=== PATIENT | male | born 1995 | race African-American/Black ===

== ENCOUNTER 2020-02-12 14:46 | Emergency (ER) | payer OTHER, SELFPAY ==
[2020-02-13 18:17] LABS: SARS-CoV-2 MS2 Positive; SARS-CoV-2 N Gene Negative; SARS-CoV-2 S Gene Negative; SARS-CoV-2 by NAA Not Detected (NotDetected); SARS-CoV-2 orf1ab Negative
== END 2020-02-12 15:15 | disposition home or self-care (01) ==
LOC: NAV ERS 14:46
DX: Z20.828 Contact with and (suspected) exposure to other viral communicable diseases (principal); F17.210 Nicotine dependence, cigarettes, uncomplicated
CPT/HCPCS: 87635; 99283; U0003